=== PATIENT | female | born 1955 | race Caucasian/White ===

== ENCOUNTER → 2019-10-02 | Outpatient (CLI) | payer OTHER | LOC: LAB 14:47 | PROVIDERS: ATTEND Internal Medicine | DX: Z01.818 Encounter for other preprocedural examination (principal); Z11.59 Encounter for screening for other viral diseases ==

== ENCOUNTER → 2019-10-05 | Outpatient (CLI) | payer OTHER ==
--- NOTE | 2019-10-07 19:09 | SLE ---
[facility] [place] [address] POLYSOMNOGRAPHY STUDY Name: МАРИНА ANDERS Room #: REG [facility]#: [id number] Admission: 10/05/19 Attend Phys: Virgil Oden MD, Discharge: Date of : 55 Report #: [id number] THIS REPORT FOR: //name// CC: Virgil Oden MD [facility] Eugenio Shabana DATE OF SERVICE: 10/05/2019 SLEEP STUDY ATTENDING PHYSICIAN: Dr. Virgil Oden. The patient is a 64-year-old who weighs 210 pounds with a BMI of 31. The patient's [place] score was 10. The patient underwent a sleep study performed at [facility]. The patient's blood pressure has under been suboptimal controlled and as a result sleep apnea needs to be considered and needs to be ruled out. During the night study, the patient spent 536 minutes in bed and slept for 441 minutes with a sleep efficiency of 82%. Sleep latency was 23.6 minutes with a REM latency of 189 minutes. Sleep architecture showed increased stage 1 and stage 2 sleep, reduced slow wave and normal REM sleep. During the night of the study, the patient had 7 obstructive apneas, no mixed or central apneas and 19 hypopneas. The patient's AHI was 3.5 per hour with a REM AHI of 5 per hour and a supine AHI of 3.5 per hour. EKG monitoring revealed an average heart rate of 59 beats per minute. No sustained arrhythmias observed. PLMS were seen at an index of 14.7 per hour and 2 per hour caused EEG arousals. Nocturnal oximetry study revealed an average oxygen saturation of 94% with the lowest of 88%. Only 0.1 minutes were spent with oxygen saturation of less than 89%. Due to low AHI, the patient did not meet the split night criteria for CPAP initiation. IMPRESSION: 1. No clinically significant sleep disorder breathing. The patient's AHI for the entire night was 3.5 per hour. 2. No clinically significant nocturnal hypoxia. 3. Mild periodic limb movements of sleep. [facility] [address] [place] [address] POLYSOMNOGRAPHY STUDY Name: МАРИНА ANDERS Room #: REG [facility]#: [id number] Admission: 10/05/19 Attend Phys: Virgil Oden MD, Discharge: Date of : 55 Report #: [id number] RECOMMENDATIONS: 1. The patient did not meet the split night criteria for CPAP initiation. 2. Weight loss is advised. 3. Avoid [employer] REPA[employer]ER depressants. 4. PLMS does not need to be treated unless the patient has symptoms of restless legs during the day. <ELECTRONICALLY SIGNED> By: Shahram Carter MD 10/07/19 [id number] Shahram Carter MD /nt
== END ==
LOC: SLEEPLAB 09:42
PROVIDERS: ATTEND Internal Medicine
DX: G47.33 Obstructive sleep apnea (adult) (pediatric) (principal); G47.61 Periodic limb movement disorder

== ENCOUNTER → 2019-10-24 | Outpatient (CLI) | payer OTHER | LOC: SJCVC 08:52 → SJCVCIMAG 12:39 → SJCVC 13:36 → SJCVCIMAG 15:39 | PROVIDERS: ATTEND Internal Medicine | DX: I08.1 Rheumatic disorders of both mitral and tricuspid valves (principal); G47.33 Obstructive sleep apnea (adult) (pediatric); Z82.49 Family history of ischemic heart disease and other diseases of the circulatory system ==

== ENCOUNTER → 2020-03-26 | Outpatient (CLI) | payer OTHER ==
--- NOTE | 2020-03-27 20:45 | SLE ---
[facility] [place] [address] POLYSOMNOGRAPHY STUDY Name: МАРИНА ANDERS Room #: REG [facility]#: [id number] Admission: 03/26/20 Attend Phys: Trevor Peacock MD Discharge: Date of : 55 Report #: [id number] THIS REPORT FOR: cc: Starla Chapman, Shahram Erazo MD ~ DATE OF SERVICE: 03/26/2020 HOME SLEEP STUDY REFERRING PHYSICIAN: Dr. Trevor Peacock. The patient is a 64-year-old who weighs 210 pounds with a BMI of 31.0. The patient's [place] score was 11. The patient had an in-lab sleep study in September of this year and did not have any significant sleep disorder breathing. The patient's AHI was 3.5 per hour. The patient was referred for another home sleep study. During the night study, the patient's total recording time was 512 minutes. The patient had 16 central apneas, 11 obstructive apneas, 1 mixed apnea and 18 hypopneas. The patient's AHI was 5.4 per hour with a supine AHI of 5.8 per hour. Nocturnal oximetry study revealed an average oxygen saturation of 95% with lowest of 83%. Only 0.7 minutes were spent with oxygen saturation of less than 90%. Mean heart rate was 61 beats per minute. IMPRESSION: 1. Mild obstructive sleep apnea at an AHI of 5.4 per hour. 2. No clinically significant nocturnal hypoxia. RECOMMENDATIONS: 1. The patient has mild sleep apnea. If the patient is clinically symptomatic or has comorbid conditions, then consider treatment of sleep apnea with either CPAP versus oral appliance. 2. Once the patient is optimally treated, then follow up in 4-6 weeks to assess compliance with treatment and to document clinical improvement. 3. Weight loss is advised. 4. Avoid [employer] depressants. [facility] [address] [place] [address] POLYSOMNOGRAPHY STUDY Name: МАРИНА ANDERS Room #: REG [facility].#: [id number] Admission: 03/26/20 Attend Phys: Trevor Peacock MD Discharge: Date of : 55 Report #: [id number] 5. Cautioned regarding driving until symptoms of sleep apnea resolve with the above recommendations. <ELECTRONICALLY SIGNED> By: Shahram Carter MD 03/27/20 2045 [id number] Shahram Carter MD /nt
== END ==
LOC: SLEEPLAB 09:16
PROVIDERS: ATTEND Internal Medicine Pulmonary Disease
DX: G47.33 Obstructive sleep apnea (adult) (pediatric) (principal)